=== PATIENT | female | born 1950 | race Caucasian/White ===

== ENCOUNTER 2018-03-14 07:58 | Day surgery (SDC) | payer MEDICARE ==
[~2018-03-14 07:58] MED LIST: ALDACTONE25 MG PO; ALENDRONATE70 MG PO; AMLODIPINE5 MG PO; ASPIRIN LOW DOS81 M1 PO; CALCIUM600 M1 PO; CILOSTAZOL50 MG PO; CLONAZEP ODT1 MG PO; CLOPIDOGREL75 MG PO; COQ10200 MG PO; D32000 UNIT PO; LEVOTHYROXIN125 MC1 PO; LIPITOR40 M1 PO; MAG-OX 400400 MG PO; PRILOSEC40 MG PO; SERTRALINE100 MG PO; ZOFRAN4 M1 PO
[2018-03-14 10:48] VITALS: BP 102/62
== END 2018-03-14 11:06 | disposition home or self-care (01) ==
LOC: ENDO 07:58 → ORM 09:45 → ENDO 10:30 → ORM 11:00 → ENDO 11:06
PROVIDERS: ATTEND Internal Medicine Gastroenterology
PROC: 0DB78ZX Excision of Stomach, Pylorus, Via Natural or Artificial Opening Endoscopic, Diagnostic (ICD-10-PCS; principal; 2018-03-14)
DX: K29.70 Gastritis, unspecified, without bleeding (principal); K31.9 Disease of stomach and duodenum, unspecified; K21.9 Gastro-esophageal reflux disease without esophagitis; K44.9 Diaphragmatic hernia without obstruction or gangrene; K57.30 Diverticulosis of large intestine without perforation or abscess without bleeding; K64.8 Other hemorrhoids; I10 Essential (primary) hypertension; I25.10 Atherosclerotic heart disease of native coronary artery without angina pectoris; E78.00 Pure hypercholesterolemia, unspecified; E03.9 Hypothyroidism, unspecified; I25.2 Old myocardial infarction; Z95.5 Presence of coronary angioplasty implant and graft; Z86.010 Personal history of colon polyps